=== PATIENT | female | born 1945 | race Caucasian/White ===

== ENCOUNTER 2019-03-10 07:07 | Day surgery (SDC) | payer OTHER ==
[2019-03-10 07:38] VITALS: BMI 20.7
[2019-03-10 07:46] VITALS: O2SAT 100
[2019-03-10] MEDS: Lactated Ringer's 500 ML IV ONE ×2 (09:11→09:37)
[2019-03-10] MEDS ORDERED: Lactated Ringer's 500 ML IV ONE (09:11)
--- NOTE | 2019-03-10 09:11 | CP.SDSHP ---
Same Day Surgery H & P - History Proposed Procedure: COLONSCOPY Pre-Op Diagnosis: SEE NOTES - Previous Medical/Surgical History Cardiac: Hypertension Endocrine/Metabolic: Diabetes, Other Misc: Other Pain: 4.Moderate Pain - Allergies Allergies: Allergies No Known Allergies Allergy (Verified 04/08/17 09:43) - Physical Exam General Appearance: N Vital Signs: Vital Signs 03/10/19 07:30 Temperature 97.3 F L Pulse Rate 99 H Respiratory 16 Rate Blood Pressure 142/65 O2 Sat by Pulse 100 Oximetry Mental Status: Alert & Oriented x3 Neuro: WNL Heart: Other Lungs: WNL GI: Other - {Optional Preform as Required} Breast: WNL Abdomen: Other Rectal: Other Integument: WNL : WNL Ortho: Other ENT: WNL - Impression Pt. Evaluated Today:Candidate for Anesthesia & Procedure: Yes Short Stay Discharge - Short Stay Discharge Admitting Diagnosis/Reason for Visit: DIARRHEA Disposition: HOME/ ROUTINE
[2019-03-10] MEDS ORDERED: Propofol 10 mg/ml Inj (20 ML) ONE (09:20)
[2019-03-10] MEDS ORDERED: Lidocaine Hydrochloride 5 ML INJ ONE (09:20)
[2019-03-10] MEDS ORDERED: Belladonna-Phenobarbital PO ONE (09:50)
[2019-03-10 09:51] VITALS: TEMP 98
[2019-03-10 10:49] VITALS: BP 111/69; PULSE 64; RESP 18
== END 2019-03-10 10:45 | disposition home or self-care (01) ==
LOC: C.ENDO 07:07
PROVIDERS: ATTEND Specialist
DX: K52.9 Noninfective gastroenteritis and colitis, unspecified (principal); K57.30 Diverticulosis of large intestine without perforation or abscess without bleeding; K64.8 Other hemorrhoids; K64.4 Residual hemorrhoidal skin tags; I10 Essential (primary) hypertension; E11.9 Type 2 diabetes mellitus without complications
CPT/HCPCS: 45380; 82948; 88305; 88313; 88342; J2704

== ENCOUNTER 2019-03-21 08:01 | Day surgery (SDC) | payer OTHER ==
--- NOTE | 2019-03-21 09:33 | CP.SDSHP ---
Same Day Surgery H & P - History Proposed Procedure: EGD Pre-Op Diagnosis: SEE NOTES - Previous Medical/Surgical History Cardiac: Hypertension Endocrine/Metabolic: Diabetes, Other Misc: Other Pain: 4.Moderate Pain - Allergies Allergies: Allergies No Known Allergies Allergy (Verified 04/08/17 09:43) - Physical Exam General Appearance: N Vital Signs: Vital Signs 03/21/19 03/21/19 08:23 08:46 Temperature 97.3 F L 97.3 F L Pulse Rate 76 76 Respiratory 18 18 Rate Blood Pressure 151/61 H 151/61 H O2 Sat by Pulse 99 99 Oximetry Mental Status: Alert & Oriented x3 Neuro: WNL Heart: Other Lungs: WNL GI: Other - {Optional Preform as Required} Breast: WNL Abdomen: Other Rectal: Other Integument: WNL : WNL Ortho: Other ENT: WNL - Impression Pt. Evaluated Today:Candidate for Anesthesia & Procedure: Yes - Date & Time Time: 09:33 Short Stay Discharge - Short Stay Discharge Admitting Diagnosis/Reason for Visit: GI BLEEDING Disposition: HOME/ ROUTINE
[2019-03-21] MEDS ORDERED: Propofol 10 mg/ml Inj (20 ML) ONE (09:52)
[2019-03-21 10:05] VITALS: TEMP 96.8
[2019-03-21] MEDS ORDERED: Belladonna-Phenobarbital PO ONE (10:10)
[2019-03-21] MEDS ORDERED: Pantoprazole 40 mg EC Tab PO ONE (10:15)
[2019-03-21 10:37] VITALS: BP 137/71; PULSE 75; RESP 20; O2SAT 97
== END 2019-03-21 11:00 | disposition home or self-care (01) ==
LOC: C.ENDO 08:01
PROVIDERS: ATTEND Specialist
DX: K44.9 Diaphragmatic hernia without obstruction or gangrene (principal); K29.50 Unspecified chronic gastritis without bleeding; I10 Essential (primary) hypertension; E11.9 Type 2 diabetes mellitus without complications; E78.5 Hyperlipidemia, unspecified; Z79.4 Long term (current) use of insulin; Z79.899 Other long term (current) drug therapy
CPT/HCPCS: 43239; 82948; 88305; 88342; J2001; J2704